=== PATIENT | male | born 1970 | race Two or more races ===

== ENCOUNTER 2022-09-17 14:23 | Emergency (ER) | payer OTHER ==
[~2022-09-17] VITALS: Ht 188 cm; Wt 128.4 kg
== END 2022-09-17 19:03 | disposition home or self-care (01) ==
LOC: ER 14:23
DX: M25.561 Pain in right knee (principal); M17.11 Unilateral primary osteoarthritis, right knee

== ENCOUNTER 2025-03-12 08:39 | Emergency (ER) | payer OTHER ==
[~2025-03-12] VITALS: Ht 188 cm; Wt 134.3 kg
[2025-03-12] MEDS ORDERED: KETOROLAC TROMETHAMINE 30 MG VIAL IM STA (09:53)
[2025-03-12] MEDS ORDERED: FAMOTIDINE/PF 20 MG/2 ML VIAL IV STA (09:53)
[2025-03-12] MEDS ORDERED: 0.9 % SODIUM CHLORIDE 1,000 ML IV SCH (10:00)
[2025-03-12 13:01] LABS: BASO % 0.5 % (0.1-1.2); EOS # 0.12 (0.04-0.54); EOS % 1.5 % (0.7-7.0); LYMPH # 2.11 (1.18-3.74); LYMPH % 25.7 % (19.3-53.1); MEAN PLATELET VOLUME 11.50 fl (9.4-12.4); MONO # 0.63 (0.24-0.82); MONO % 7.7 % (4.7-12.5); NEUT # 5.23 (1.56-6.13); NEUT % 63.6 % (34.0-71.1); RED CELL DISTRIBUTION WIDTH 13.5 % (11.6-14.4)
[2025-03-12 13:04] LABS: URINE APPEARANCE Clear; URINE BILIRRUBIN Negative (NEGATIVE); URINE BLOOD Negative; URINE COLOR Yellow; URINE GLUCOSE Negative (NEGATIVE); URINE KETONE Negative (NEGATIVE); URINE LEUKOCYTE Negative; URINE NITRATE Negative; URINE PROTEIN Trace (NEGATIVE); URINE UROBILINOGEN 0.2 E.U./dl
[2025-03-12 13:07] LABS: URINE RBC 3.2 uL (0.0-20.8); URINE WBC 2.2 uL (0.0-23.2)
[2025-03-12 13:09] LABS: URINE BACTERIA 3.5 uL (0.0-1933); URINE CAST 0.00 uL (0.0-1.40); URINE EPITHELIAL CELLS 1.2 uL (0.0-38.8)
[2025-03-12] MEDS ORDERED: 0.9 % SODIUM CHLORIDE 1,000 ML IV STA (13:10)
[2025-03-12 13:28] LABS: INR 1.04
[2025-03-12 13:32] LABS: ALT/SGPT 74.0 U/L (12-78); AST/SGOT 38.0 U/L (15-37); BILIRUBIN TOTAL 0.77 mg/dL (0.3-1.2); BUN CREA RATIO 15.0 (7.0-25.0); CREATININE SERUM 1.43 mg/dL (0.70-1.30); GFR 51.73; GLOBULINA 4.2 G/DL (2.4-3.5); GLUCOSE FASTING 98.0 mg/dL (65-100); OSMOLALITY SERUM 284.0 MOSM/KG (275-295)
[2025-03-12] MEDS ORDERED: LEVSIN0.125 MG PO (17:36)
[2025-03-12] MEDS ORDERED: ZYRTEC10 M3 PO (17:36)
[2025-03-12] MEDS ORDERED: PEPCID AC20 MG PO (17:36)
== END 2025-03-12 21:48 | disposition home or self-care (01) ==
LOC: ER 08:40
PROVIDERS: Physician Assistant Medical
DX: R10.84 Generalized abdominal pain (principal); K63.89 Other specified diseases of intestine